=== PATIENT | male | born 1980 | race Caucasian/White ===

== ENCOUNTER 2018-03-02 10:02 | Emergency (ER) | payer BC ==
[~2018-03-02] VITALS: Ht 177.8 cm; Wt 59.6 kg
[~2018-03-02 10:02] MED LIST: MOTRIN600 MG PO; PEN-VEE K,VEET500 MG PO; PERCOCET 5/31 TABLET PO
[2018-03-02 12:15] VITALS: BP 138/89
== END 2018-03-02 12:30 | disposition home or self-care (01) ==
LOC: EME 10:02
DX: F32.9 Major depressive disorder, single episode, unspecified (principal); R44.0 Auditory hallucinations; F17.200 Nicotine dependence, unspecified, uncomplicated
CPT/HCPCS: 90839; 99281; 99284